=== PATIENT | female | born 1990 | race Caucasian/White ===

== ENCOUNTER 2017-07-16 01:34 | Emergency (ER) | payer SELFPAY ==
[2017-07-16] MEDS: diphenhydrAMINE 50 MG/ML VIAL IVP (02:48)
[2017-07-16] MEDS: METOCLOPRAMIDE HCL 10 MG/2 ML VIAL. IV (02:48)
[2017-07-16] MEDS: DEXAMETHASONE SOD PHOS 4 MG/ML VIAL IV (02:49)
[2017-07-16] MEDS: KETOROLAC 30 MG/ML INJ. IV (02:49)
[2017-07-16] MEDS: MAGNESIUM SULFATE 2GM 50 ML IV (02:50)
[2017-07-16] MEDS: IV NORMAL SALINE 1000ML BAG 1,000 ML IV (02:50)
== END 2017-07-16 04:44 | disposition home or self-care (01) ==
LOC: ER 01:34
DX: G43.909 Migraine, unspecified, not intractable, without status migrainosus (principal); J45.909 Unspecified asthma, uncomplicated; G47.30 Sleep apnea, unspecified; Z88.5 Allergy status to narcotic agent; Z88.8 Allergy status to other drugs, medicaments and biological substances
CPT/HCPCS: 96365; 96366; 96375; 99285-25; J1100; J1200; J1885; J2765; J3475; J7030